=== PATIENT | male | born 1955 | race Caucasian/White ===

== ENCOUNTER 2021-12-13 14:00 | Observation (INO) | payer OTHER, BC ==
[2021-12-13] MEDS ORDERED: dilTIAZem HCL 50 MG/10 ML - 10 ML VIAL IVPUSH ONE ×3 (14:32→15:40)
[2021-12-13 14:35] VITALS: BMI 22.9
[2021-12-13] MEDS ORDERED: dilTIAZem HCL 125 MG/25 ML - 25 ML VIAL ONE ×2 (14:40→15:41)
[2021-12-13] MEDS ORDERED: dilTIAZem HCL 30 MG TABLET ONE (15:06)
[2021-12-13 15:16] LABS: BASO % 0.7 % (0-2.0); EOS % 0.6 % (0-4.5); HEMATOCRIT 43.9 % (35.4-49); HEMOGLOBIN 15.2 GM/dL (11.7-16.9); LYMPH % 24.7 % (8-40); MCHC 34.6 g/dl (32.0-35.9); MEAN CELL VOLUME 92.5 fl (80-96); MEAN PLT VOLUME 7.9 fl (7.5-11.1); MONO % 13.3 % (3.8-10.2); NEUT % 60.7 % (42.8-82.8); PLATELET COUNT 176 10^3/uL (134-434); RBC 4.74 M/mm3 (4.00-5.60); RDW 13.1 % (11.9-15.9); WHITE BLOOD COUNT 6.3 K/mm3 (4.0-10.0)
[2021-12-13 15:22] LABS: INR 1.02 (0.83-1.09); PROTHROMBIN TIME (PATIENT) 11.7 SEC (9.7-13.0)
[2021-12-13 15:25] LABS: ACTIVATED PTT 31.4 SECONDS (25.2-36.5)
[2021-12-13 15:50] LABS: BLOOD UREA NITROGEN 17.1 mg/dL (7-18); CALCIUM 8.6 mg/dL (8.5-10.1)
[2021-12-13 15:51] LABS: ALBUMIN 3.8 g/dl (3.4-5.0); MAGNESIUM 2.1 mg/dL (1.8-2.4)
[2021-12-13 15:54] LABS: CREATININE 0.8 mg/dL (0.55-1.3)
[2021-12-13 15:55] LABS: BILIRUBIN,TOTAL 0.7 mg/dL (0.2-1); TOT PROT 7.4 g/dl (6.4-8.2)
[2021-12-13] MEDS ORDERED: METOPROLOL TARTRATE 5 MG/5 ML VIAL ONE (19:05)
[2021-12-13] MEDS: METOPROLOL TARTRATE 5 MG/5 ML VIAL IVPUSH PRN (19:15)
[2021-12-13] MEDS ORDERED: APIXABAN 5 MG TABLET ONE (21:54)
[2021-12-13] MEDS: APIXABAN 5 MG TABLET PO SCH (21:57)
[2021-12-14] MEDS ORDERED: ACETAMINOPHEN 325 MG TABLET (FP) PO PRN (05:25)
[2021-12-14] MEDS: METOPROLOL TARTRATE 5 MG/5 ML VIAL IVPUSH PRN (05:43)
[2021-12-14 07:01] LABS: BASO % 0.6 % (0-2.0); EOS % 1.3 % (0-4.5); HEMATOCRIT 43.7 % (35.4-49); HEMOGLOBIN 15.1 GM/dL (11.7-16.9); LYMPH % 23.9 % (8-40); MCHC 34.5 g/dl (32.0-35.9); MEAN CELL VOLUME 92.6 fl (80-96); MEAN PLT VOLUME 7.9 fl (7.5-11.1); MONO % 11.9 % (3.8-10.2); NEUT % 62.3 % (42.8-82.8); PLATELET COUNT 173 10^3/uL (134-434); RBC 4.72 M/mm3 (4.00-5.60); RDW 13.2 % (11.9-15.9); WHITE BLOOD COUNT 7.8 K/mm3 (4.0-10.0)
[2021-12-14 07:24] LABS: CHLORIDE 106 mmol/L (98-107); SODIUM 139 mmol/L (136-145)
[2021-12-14 07:26] LABS: CALCIUM 8.6 mg/dL (8.5-10.1)
[2021-12-14 07:27] LABS: ALBUMIN 3.4 g/dl (3.4-5.0); ANION GAP 6 MMOL/L (8-16); CO2 27 mmol/L (21-32); GLUCOSE,RANDOM 108 mg/dL (74-106)
[2021-12-14 07:30] LABS: CREATININE 0.8 mg/dL (0.55-1.3); SGOT/AST 15 U/L (15-37); SGPT/ALT 28 U/L (13-61)
[2021-12-14 07:32] LABS: TOT PROT 6.7 g/dl (6.4-8.2)
[2021-12-14 07:33] LABS: ALK PHOS 67 U/L (45-117)
[2021-12-14 08:23] LABS: INR 1.12 (0.83-1.09); PROTHROMBIN TIME (PATIENT) 12.9 SEC (9.7-13.0)
[2021-12-14 08:26] LABS: ACTIVATED PTT 33.1 SECONDS (25.2-36.5)
[2021-12-14] MEDS: APIXABAN 5 MG TABLET PO SCH ×2 (09:40→21:43)
[2021-12-14] MEDS: metoPROLOL SUCCINATE 25 MG TAB.SR.24H (FP) PO SCH (09:40)
[2021-12-14 09:48] LABS: EPI CELLS 1 /uL (0-25.1); HYALINE CASTS 0 /uL (0-3.1); URINE APPEARANCE CLEAR; URINE BACTERIA 6 /uL (0-1359); URINE BILIRUBIN NEGATIVE (NEGATIVE); URINE COLOR DK YELLOW; URINE GLUCOSE (UA) NEGATIVE (NEGATIVE); URINE KETONE NEGATIVE (NEGATIVE); URINE LEUK ESTERASE NEGATIVE (NEGATIVE); URINE NITRITE NEGATIVE (NEGATIVE); URINE PROTEIN 2+ (NEGATIVE); URINE RBC 20 /uL (0-23.9); URINE WBC 3 /uL (0-25.8)
[2021-12-14] MEDS ORDERED: PNEUMOC 13-VAL CONJ-DIP CRM/PF 0.5 ML DISP.SYRIN IM ONE (10:00)
[2021-12-15 07:38] LABS: HEMATOCRIT 43.6 % (35.4-49); HEMOGLOBIN 15.1 GM/dL (11.7-16.9); MCH 32.3 pg (25.7-33.7); MCHC 34.7 g/dl (32.0-35.9); MEAN CELL VOLUME 93.1 fl (80-96); MEAN PLT VOLUME 8.1 fl (7.5-11.1); PLATELET COUNT 160 10^3/uL (134-434); RBC 4.68 M/mm3 (4.00-5.60); RDW 13.1 % (11.9-15.9)
[2021-12-15 08:00] LABS: BLOOD UREA NITROGEN 15.6 mg/dL (7-18); MAGNESIUM 2.2 mg/dL (1.8-2.4)
[2021-12-15 08:04] LABS: CREATININE 0.9 mg/dL (0.55-1.3)
[2021-12-15] MEDS: APIXABAN 5 MG TABLET PO SCH (09:55)
[2021-12-15] MEDS: metoPROLOL SUCCINATE 25 MG TAB.SR.24H (FP) PO SCH (09:56)
[2021-12-15 13:42] VITALS: BP 140/74; PULSE 79; TEMP 97.8
== END 2021-12-15 17:49 | disposition home or self-care (01) ==
LOC: JER 14:00 → JERBED 16:41 → J4W 22:03
PROVIDERS: ADMIT Internal Medicine; ATTEND Internal Medicine
PROC: 3E033GC Introduction of Other Therapeutic Substance into Peripheral Vein, Percutaneous Approach (ICD-10-PCS; principal; 2021-12-13)
PROC: 3E0234Z Introduction of Serum, Toxoid and Vaccine into Muscle, Percutaneous Approach (ICD-10-PCS; 2021-12-13)
DX: I48.91 Unspecified atrial fibrillation (principal); I10 Essential (primary) hypertension; R00.2 Palpitations; Z91.013 Allergy to seafood; Z91.018 Allergy to other foods; R06.81 Apnea, not elsewhere classified; F10.99 Alcohol use, unspecified with unspecified alcohol-induced disorder; Z23 Encounter for immunization
CPT/HCPCS: 36415; 71045-TC-FY; 80048; 80053; 81003; 82553; 83605; 83735; 84439; 84443; 84484; 85025; 85027; 85610; 85730; 87040; 87086; 90670; 93005; 93010; 96374; 96375; 96376; 99285-25; C9803-CS; G0009; G0378; U0003; U0005

== ENCOUNTER 2022-01-29 10:04 | Emergency (ER) | payer OTHER, BC ==
[2022-01-29 10:14] VITALS: BP 124/72; PULSE 95; TEMP 97.8; BMI 24.3
[2022-01-29] MEDS ORDERED: dilTIAZem HCL 50 MG/10 ML - 10 ML VIAL IVPUSH ONE (11:12)
[2022-01-29] MEDS ORDERED: dilTIAZem HCL 125 MG/25 ML - 25 ML VIAL ONE (11:22)
[2022-01-29] MEDS ORDERED: APIXABAN 5 MG TABLET PO ONE (11:48)
[2022-01-29] MEDS ORDERED: APIXABAN 5 MG TABLET ONE (12:11)
[2022-01-29 13:26] LABS: BASO % 2.4 % (0-2.0); EOS % 0.5 % (0-4.5); HEMATOCRIT 45.5 % (35.4-49); HEMOGLOBIN 15.9 GM/dL (11.7-16.9); LYMPH % 20.3 % (8-40); MCH 32.5 pg (25.7-33.7); MEAN CELL VOLUME 92.8 fl (80-96); MEAN PLT VOLUME 8.3 fl (7.5-11.1); MONO % 8.5 % (3.8-10.2); NEUT % 68.3 % (42.8-82.8); PLATELET COUNT 213 10^3/uL (134-434); RBC 4.91 M/mm3 (4.00-5.60); RDW 13.9 % (11.9-15.9); WHITE BLOOD COUNT 8.1 K/mm3 (4.0-10.0)
[2022-01-29 13:32] LABS: ALBUMIN 3.6 g/dl (3.4-5.0); CALCIUM 7.9 mg/dL (8.5-10.1)
[2022-01-29 13:33] LABS: BLOOD UREA NITROGEN 14.1 mg/dL (7-18)
[2022-01-29 13:35] LABS: CREATININE 0.7 mg/dL (0.55-1.3)
[2022-01-29 13:37] LABS: BILIRUBIN,TOTAL 0.6 mg/dL (0.2-1); TOT PROT 7.3 g/dl (6.4-8.2)
== END 2022-01-29 17:26 | disposition home or self-care (01) ==
LOC: SUPCPDRO 10:04 → JER 10:04
PROC: 3E033GC Introduction of Other Therapeutic Substance into Peripheral Vein, Percutaneous Approach (ICD-10-PCS; principal; 2022-01-29)
DX: I48.91 Unspecified atrial fibrillation (principal)
CPT/HCPCS: 36415; 80053; 84439; 84443; 84481; 84484; 85025; 93005; 93010; 99284-25

== ENCOUNTER 2022-11-20 05:25 | Day surgery (SDC) | payer OTHER, BC ==
[2022-11-19 10:23] VITALS: BMI 26.6
[2022-11-20 08:43] VITALS: TEMP 97.8
[2022-11-20 09:07] VITALS: RESP 19
[2022-11-20 09:43] LABS: EOS % 1.1 % (0-4.5); HEMATOCRIT 38.1 % (35.4-49); HEMOGLOBIN 13.1 GM/dL (11.7-16.9); LYMPH % 23.2 % (8-40); MCH 32.1 pg (25.7-33.7); MCHC 34.5 g/dl (32.0-35.9); MEAN CELL VOLUME 93.1 fl (80-96); MEAN PLT VOLUME 7.6 fl (7.5-11.1); MONO % 9.9 % (3.8-10.2); NEUT % 64.8 % (42.8-82.8); PLATELET COUNT 189 10^3/uL (134-434); RBC 4.09 M/mm3 (4.00-5.60); RDW 13.4 % (11.9-15.9); WHITE BLOOD COUNT 5.9 K/mm3 (4.0-10.0)
[2022-11-20 09:48] LABS: INR 1.09 (0.83-1.09); PROTHROMBIN TIME (PATIENT) 12.6 SEC (9.7-13.0)
[2022-11-20 09:55] LABS: CHLORIDE 110 mmol/L (98-107); SODIUM 144 mmol/L (136-145)
[2022-11-20 09:56] LABS: CALCIUM 9.2 mg/dL (8.5-10.1)
[2022-11-20 09:57] LABS: ALBUMIN 3.8 g/dl (3.4-5.0); ANION GAP 4 MMOL/L (8-16); CO2 30 mmol/L (21-32); GLUCOSE,RANDOM 108 mg/dL (74-106)
[2022-11-20 10:00] LABS: CREATININE 0.9 mg/dL (0.55-1.3); SGOT/AST 17 U/L (15-37)
[2022-11-20 10:01] LABS: IRON SERUM 58 ug/dL (50-175); TOT PROT 7.3 g/dl (6.4-8.2)
[2022-11-20 10:02] LABS: BILIRUBIN,TOTAL 0.7 mg/dL (0.2-1); TOTAL IRON BINDING CAPACITY 342 ug/dL (250-450)
[2022-11-20 10:03] LABS: ALK PHOS 65 U/L (45-117)
[2022-11-20 10:05] LABS: SGPT/ALT 33 U/L (13-61)
[2022-11-20 11:04] VITALS: BP 154/90; PULSE 68
== END 2022-11-20 09:50 | disposition home or self-care (01) ==
LOC: JASU-ENDO 05:25
PROVIDERS: ATTEND Internal Medicine Gastroenterology
PROC: 0DB98ZX Excision of Duodenum, Via Natural or Artificial Opening Endoscopic, Diagnostic (ICD-10-PCS; 2022-11-20)
PROC: 0DB78ZX Excision of Stomach, Pylorus, Via Natural or Artificial Opening Endoscopic, Diagnostic (ICD-10-PCS; 2022-11-20)
PROC: 0DB48ZX Excision of Esophagogastric Junction, Via Natural or Artificial Opening Endoscopic, Diagnostic (ICD-10-PCS; 2022-11-20)
PROC: 0DBL8ZZ Excision of Transverse Colon, Via Natural or Artificial Opening Endoscopic (ICD-10-PCS; principal; 2022-11-20 08:00)
DX: Z12.11 Encounter for screening for malignant neoplasm of colon (principal); K57.30 Diverticulosis of large intestine without perforation or abscess without bleeding; K64.8 Other hemorrhoids; K92.1 Melena; C16.0 Malignant neoplasm of cardia; I10 Essential (primary) hypertension
CPT/HCPCS: 36415; 80053; 82378; 82728; 82941; 83540; 83550; 85025; 85610; 86140; 88305-TC; 88342-TC